=== PATIENT | male | born 1950 | race Caucasian/White ===

== ENCOUNTER 2017-07-31 09:37 | Emergency (ER) | payer OTHER, MEDICAID ==
--- NOTE | 2017-07-31 10:42 | EDPHY ---
H & P Time Seen by Provider: 07/31/17 09:52 HPI/ROS: Chief complaint. Shortness of breath HPI. Patient is a 66-year-old male with history of COPD. He lives in an assisted living. Apparently his oxygen which normally is at 4 liters/minute ran out and he became short of breath. He was restarted on his oxygen. He has no complaints and would like to leave at this point. He tells me he did not have any chest discomfort. He has not been sick having fever or cough. He has no unusual leg pain or swelling. ROS Constitutional. no fever/chills, no weakness Eyes. no problems with vision ENT. no sore throat, no nasal drainage Cardiovascular. no chest pain Respiratory. Shortness of breath Abdominal. no abdominal pain, no nausea/vomiting, no diarrhea . no problems urinating MS. no calf pain/swelling, no neck/back pain, no joint pain Skin. no rash Lymph. no swollen glands Neuro. no headache, no dizziness, no difficulty walking or with speech Past Medical/Surgical History: Past medical history significant HIV, schizoaffective disorder, GERD, hypertension, COPD, bipolar illness Social History: Single, daily smoker, no alcohol Smoking Status: Heavy smoker Physical Exam: General Appearance: Alert well-developed male no distress vital signs are stable. O2 saturation 86% on room air but 94% on his usual 4 L. Eyes: Pupils equal and round no pallor or injection. ENT, Mouth: Mucous membranes are moist. Respiratory: There are no retractions, lungs are clear to auscultation. Cardiovascular: Regular rate and rhythm. Gastrointestinal: Abdomen is soft and nontender, no masses, bowel sounds normal. Neurological: Awake and alert, sensory and motor exams grossly normal. Skin: Warm and dry, no rashes. Musculoskeletal: Neck is supple nontender. Extremities symmetrical, full range of motion. Psychiatric: Patient is oriented X 3, there is no agitation. Constitutional: Initial Vital Signs Temperature (C) 36.9 C 07/31/17 09:44 Heart Rate 70 07/31/17 09:44 Respiratory Rate 20 07/31/17 09:44 Blood Pressure 127/68 H 07/31/17 09:44 O2 Sat (%) 86 L 07/31/17 09:44 O2 Delivery Mode Nasal Cannula O2 (L/minute) 4 Allergies/Adverse Reactions: No Known Allergies Allergy (Verified 02/24/15 20:39) Home Medications: Medication Instructions Recorded ASPIRIN 07/25/13 Amantadine 07/25/13 Benztropine Mesylate 07/25/13 Haldol 07/25/13 LORAZEPAM 07/25/13 Lactulose 07/25/13 Levothyroxine 07/25/13 Lipitor 10 mg (RX) 07/25/13 Lisinopril 07/25/13 Omeprazole 07/25/13 PREZISTA 07/25/13 Propranolol HCl 07/25/13 Raltegravir [Isentress] 07/25/13 Risperdal 07/25/13 Ritonavir [Norvir] 07/25/13 Sulfamethox/Tmp 800/160 mg 1 tab PO BID@1000,2200 10 Days tab 07/25/13 [Bactrim Ds] Viread 07/25/13 clonIDINE [Catapres (*)] 07/25/13 Medical Decision Making Procedures: Patient does not wish any further evaluation ED Course/Re-evaluation: We called [facility] to make sure that they would have the patient on oxygen. They are able to do this. Patient and I discussed need for continuous oxygen. He expresses understanding and agreement Differential Diagnosis: Patient with COPD and hypoxia when he is off his chronic oxygen. No evidence for pneumonia or sepsis Departure - Departure Disposition: Home, Routine, Self-Care Clinical Impression: Dyspnea Condition: Good Instructions: Dyspnea (ED) Additional Instructions: Wear ear oxygen as has been recommended. Return for worsening symptoms. Referrals: Patient,NotPresent [Unknown] - As per Instructions
[2017-07-31 11:48] VITALS: BP 110/73
--- NOTE | 2017-07-31 18:01 | ASDISCHSUM ---
Discharge Information Plan Status:SNF Medically Cleared to Leave: Discharge Date:07/31/2017 11:47 AM CM D/C Disposition:[facility] ADT D/C Disposition:Home, Routine, Self-Care Projected Discharge Date:07/31/2017 11:47 AM Transportation at D/C:Wheelchair Van Discharge Delay Reason: Follow-Up Date:07/31/2017 11:47 AM Discharge Slot: Final Diagnosis: Placement Information Patient Contact Information Contact Name:ELY Relationship:Other Address:[address] City:[place] Alternate Phone: State/Zip Code:[place] [address] Email: Financial Information Financial Class:Medicaid Primary Plan Desc:[employer] Primary Plan Number:[id number] Secondary Plan Desc: Secondary Plan Number: Assessment Information [facility] Progress Note CM Note CM Note Notes: Pt presented to the ED via EMS from [place] for respiratory distress. EMS report said patient's oxygen tank was empty so as soon as they put him on 4L O2, pt was stable. Spoke with Sumi at [facility] and she said patient was also short of breath on 07/28 but refused to be transported by EMS to the hospital. Pt was then prescribed O2 PRN but doesn't use it. Patient is a heavy smoker and doesn't wear the oxygen. Pt is ready for discharge back to and their wheelchair van is able to pick pt up with portable O2. Sumi aware of pt's return and need for outpatient followup assessment by practitioner. CM available for further assistance if needed. Date Signed: 07/31/2017 05:59 PM Electronically Signed By:Megan Wells RN LACE LACE Acuity / Level of Answers: No Care: Did the patient have an inpatient admission? # of Emergency department Answers: 1-2 visits in the last 6 months Score: 1 Date Signed: 07/31/2017 06:00 PM Electronically Signed By:Megan Wells RN Intervention Information Intervention Type:Transportation Date of Service:07/31/2017 06:00 PM Patient Type:Emergency Room Staff Member:SHANTE Wells, Megan Hours:0.5 Discipline:Electrical Solderer Severity: Comment:Communication with [facility] re: rayo sport back to facility. [facility] tamayo to pick pt up.
== END 2017-07-31 11:47 | disposition home or self-care (01) ==
LOC: EDUNIT#
DX: R06.00 Dyspnea, unspecified (principal); Z21 Asymptomatic human immunodeficiency virus [HIV] infection status; I10 Essential (primary) hypertension; J44.9 Chronic obstructive pulmonary disease, unspecified; F17.200 Nicotine dependence, unspecified, uncomplicated; Z79.82 Long term (current) use of aspirin